=== PATIENT | female | born 1985 ===

== ENCOUNTER 2017-02-28 15:32 | Emergency (ER) | payer OTHER ==
--- NOTE | 2017-02-28 16:22 | C.PDOC ---
History Of Present Illness 31 YO female come in for evaluation of diffuse lower back pain gradually developed for past week. Pt reports, pain is diffuse lower back, aching, worse with movement, intermittent radiation to B/L thighs. Pt admits, similar sx in past " worse with cold weather". Otherwise, pt denies known trauma or injury, fever, chills, recent illness, abd. apin, N/V/D, UTI sx, saddle anesthesia, incontinence, denies weakness, sensory or vascular deficits to B/L LEs. Ambulate to ED for evaluation, not in any apparent distress. Time Seen by Provider: 02/28/17 15:44 Chief Complaint (Nursing): Back Pain History Per: Patient Onset/Duration Of Symptoms: Gradual Past Medical History Reviewed: Historical Data, Nursing Documentation, Vital Signs Vital Signs: Last Vital Signs Temp 99 F 02/28/17 15:34 Pulse 90 02/28/17 15:34 Resp 16 02/28/17 15:34 BP 125/76 02/28/17 15:34 Pulse Ox 99 02/28/17 16:28 - Medical History PMH: Back Problems Denies: Diabetes, Hepatitis, HIV, HTN, Seizures, Sexually Transmitted Disease Surgical History: Cholecystectomy, Tonsillectomy - [facility] Procedures INDIVID PSYCHOTHERAP NEC (12/08/12) OTHER GROUP THERAPY (12/08/12) PSYCHIAT DRUG THERAP NEC (12/08/12) Family History: States: Unknown Family Hx - Social History Hx Tobacco Use: No Hx Alcohol Use: No Hx Substance Use: No - Immunization History Hx Tetanus Toxoid Vaccination: No Hx Influenza Vaccination: No Hx Pneumococcal Vaccination: No Review Of Systems Except As Marked, All Systems Reviewed And Found Negative. Constitutional: Negative for: Fever, Chills ENT: Negative for: Throat Pain Cardiovascular: Negative for: Chest Pain Respiratory: Negative for: Cough, Hemoptysis Gastrointestinal: Negative for: Nausea, Vomiting, Abdominal Pain, Diarrhea Genitourinary: Negative for: Dysuria, Frequency, Incontinence Musculoskeletal: Positive for: Back Pain. Negative for: Neck Pain Skin: Negative for: Rash, Bruising Neurological: Negative for: Weakness, Numbness Physical Exam - Physical Exam Appears: Well, Non-toxic, No Acute Distress Skin: Normal Color, Warm, Dry, No Rash Head: Normacephalic Eye(s): bilateral: PERRL Nose: No Flaring, No Discharge Oral Mucosa: Moist Throat: No Drooling Neck: Trachea Midline, Supple Cardiovascular: Rhythm Regular Respiratory: No Decreased Breath Sounds, No Accessory Muscle Use, No Rales, No Rhonchi, No Stridor, No Wheezing Gastrointestinal/Abdominal: Soft, No Tenderness, No Distention, No Guarding Back: No CVA Tenderness Extremity: No Pedal Edema, No Deformity Neurological/Psych: Oriented x3, Normal Speech, Normal Motor, Normal Sensation, Normal Reflexes ED Course And Treatment - Laboratory Results Urine POC: Negative O2 Sat by Pulse Oximetry: 99 Pulse Ox Interpretation: Normal Progress Note: On re-evaluation, pt is afebrile, hemodynamicaly stable. Ambulatory in Ed with stable gait, not in any apparent distress. Non-toxic. Tolerate PO well in ED. PulsEOx 97% RA. ENT: no acute findings. Neck: SUPple , (-) meningeal sign. Lungs: CTA B/L, BS equal B/L. Abd: benign, (-) guaridng , (-) rebound. back: (-) CVA tenderness. Neurologicaly intact. UA review and appears tangela(+)YEAST. Pt has clinical findings c/w diffuse lower back pain. Pt advised and ref. to F/u with PMD in 2-3 days for re-eval. return if any worsening or new changes. Disposition Counseled Patient/Family Regarding: Studies Performed, Diagnosis, Need For Followup, Rx Given - Disposition Referrals: [facility] at [facility] [Outside] Disposition: HOME/ ROUTINE Disposition Time: 17:08 Condition: STABLE Additional Instructions: LIGHT DUTY TO LOWER BACK, AVOID HEAVY LIFTING, BENDING, ETC. TAKE PAIN MEDICATION PRESCRIBED NEED FOLLOW UP WITH PMD IN 2-3 DAYS FOR RE-EVALUATION. RETURN TO ED IF ANY WORSENING OR NEW CHANGES. Prescriptions: Ibuprofen [Motrin Tab] 600 mg PO Q6 #20 tab Methocarbamol [Robaxin] 500 mg PO TID #14 tab traMADol [Ultram] 50 mg PO TID #7 tab Instructions: Back Pain (ED), Vulvovaginal Candidiasis (ED) Forms: [employer] (Thai) - Clinical Impression Clinical Impression: Low back strain, Betsey infection of genital region
[2017-02-28 17:02] LABS: URINE BILIRUBIN NEGATIVE (NEGATIVE); URINE BLOOD NEGATIVE (NEGATIVE); URINE COLOR Yellow (YELLOW); URINE GLUCOSE (UA) 1+ mg/dL (Normal); URINE KETONE NEGATIVE (NEGATIVE); URINE LEUKOCYTE ESTERASE NEG Leu/uL (Negative); URINE PROTEIN NEGATIVE (NEGATIVE); URINE UROBILINOGEN NORMAL mg/dL (0.2-1.0)
[2017-02-28 17:07] LABS: URINE BACTERIA FEW (<OCC)
[2017-02-28 17:27] VITALS: BP 119/83; PULSE 79; RESP 20; TEMP 97.9; O2SAT 100
== END 2017-02-28 17:25 | disposition home or self-care (01) ==
LOC: C.ER 15:32
DX: S39.012A Strain of muscle, fascia and tendon of lower back, initial encounter (principal); X58.XXXA Exposure to other specified factors, initial encounter; B37.49 Other urogenital candidiasis
CPT/HCPCS: 81001; 84703; 96372; 99283; J1885